=== PATIENT | male | born 1960 | race Hispanic/Latino ===

== ENCOUNTER 2017-01-11 16:51 | Emergency (ER) | payer OTHER ==
[~2017-01-11] VITALS: Ht 165.1 cm; Wt 77.5 kg
[~2017-01-11 16:51] MED LIST: DOCUSATE SODIU100 MG PO; DULCOLAX5 MG PO; ENDOCET 5-3251 EACH PO; LISINOPRIL-HCT1 EACH PO; Lopressor PO; NAPROXEN500 MG PO; NOHOMEMEDS; NORCO 5/3251 TABLET PO; NORVASC5 MG PO; OXYCODONE HCL5 MG PO; PAXIL10 MG PO; SEPTRA DS TABL1 EACH PO; Senokot,Sennagen PO; Zestoretic,Prinzide PO
[2017-01-11 17:30] LABS: HEMATOCRIT 40.8 % (38.0-50.0); MCH 30.6 PG (29.0-34.0); MCHC 34.3 G/DL (30.0-36.0); MCV 89.3 FL (86-99); MEAN PLAT.VOLUME 9.9 uM^3 (9.0-12.4); PLATELET COUNT 286 K/uL (156-360); RBC DIS.WIDTH-CV 13.2 % (11.8-14.6); RBC DIS.WIDTH-SD 43.2 % (39-53); RED BLOOD COUNT 4.57 M/uL (4.00-5.50); WHITE BLOOD COUNT 5.2 K/uL (4.1-10.2)
[2017-01-11 17:41] LABS: CHLORIDE 104 mEq/L (99-109); POTASSIUM 3.5 mEq/L (3.7-5.4); SODIUM 141 mEq/L (136-147)
[2017-01-11 17:43] LABS: GLUCOSE 108 mg/dL (70-99)
[2017-01-11 17:44] LABS: ANION GAP 12 MEQ/L (2-14)
[2017-01-11 17:45] LABS: TOTAL BILIRUBIN 0.7 mg/dL (0.0-1.0)
[2017-01-11 17:47] LABS: ALKALINE PHOSPHATASE 120 IU/L (3-129); GFR ESTIMATE (CALCULATED) > 59 mL/min/
[2017-01-11 17:48] LABS: UREA NITROGEN (BUN) 12 mg/dL (9-23)
[2017-01-11 18:14] LABS: ADD MIUA? NO; BILIRUBIN NEGATIVE; BLOOD NEGATIVE; COLOR STRAW ((YELLOW)); GLUCOSE (STRIP) NEGATIVE; KETONES NEGATIVE; LEUKOCYTES NEGATIVE; NITRITE NEGATIVE; PROTEIN (STRIP) NEGATIVE; SPECIFIC GRAVITY 1.005 (1.000-1.030); UCUL ADDED? NO; UROBILINOGEN 0.2 MG/DL (0.2-1.0)
[2017-01-11] MEDS ORDERED: MOTRIN600 MG PO (20:45)
[2017-01-11] MEDS ORDERED: PERCOCET 5/31 TABLET PO (20:45)
[2017-01-11 22:23] VITALS: BP 107/69
== END 2017-01-11 22:24 | disposition home or self-care (01) ==
LOC: EME 16:51
DX: M54.5 Low back pain (principal); R10.30 Lower abdominal pain, unspecified; N50.811 Right testicular pain; I10 Essential (primary) hypertension; J45.909 Unspecified asthma, uncomplicated; F32.9 Major depressive disorder, single episode, unspecified
CPT/HCPCS: 72132; 74177; 76870; 80053; 81003; 85027; 99281; 99283; J1885; J3010; J7030